=== PATIENT | female | born 1985 | race Caucasian/White ===

== ENCOUNTER → 2018-04-09 | Outpatient (CLI) | payer OTHER ==
[~2018-04-09] MED LIST: BCPILLS PO; SERT50TA PO; melatonin PO
== END | disposition home or self-care (01) ==
LOC: C.LAB1850 10:47
PROVIDERS: ATTEND Obstetrics & Gynecology
DX: Z34.82 Encounter for supervision of other normal pregnancy, second trimester (principal)

== ENCOUNTER 2018-09-06 01:12 | Inpatient (IN) ==
--- NOTE | 2018-09-06 02:26 | History & Physical Report ---
Date of Service September 06, 2018 Assessment & Plan (1) Previous delivery affecting : desires repeat. r/b/se of surgery reviewed with the patient including anesthesia, bleeding, transfusion, infection, poor wound healing, need for further surgery, injury to the baby. Discussed risks of any surgery including heart attack, blood clot, stroke, . Plan to proceed with delivery by c/s. (2) with 38 completed weeks gestation: fetus category one (3) SROM (spontaneous rupture of membranes): confirmed on sse. History of Present Illness Chief Complaint: leaking fluid Primary Care Provider: Bryan Melara Patient is a 33yowf who presents at 38 1/7 weeks c/o multiple gushes of fluid at about 12:30, has noted some cramping since. no vb. Was last checked in the office last week and was 2cm. complicated by ama and hx of previous c/s. She desires a repeat and was scheduled for 09/12. hx of anxiety on zoloft A+/ab-/ri/rprnrhiv-/hepb-/gc/ct-/ 16 week gtt nl/ panorama low risk female/afp neg/ 28 week gtt 148/ nl 2 hr gtt/gbs neg Allergies Allergy/AdvReac Type Severity Reaction Status Date / Time No Known Allergies Allergy Verified 09/06/18 01:49 Home Medications Home Medications Medication Instructions Recorded Confirmed Type ferrous sulfate [iron] 325 mg PO Q2D 07/21/18 09/06/18 History vit-iron fum-folic ac 1 tab PO QPM 07/21/18 09/06/18 History [ Vitamin] sertraline [Zoloft] 150 mg PO QPM 07/21/18 09/06/18 History polyethylene glycol 3350 [Miralax] 17 g PO Q2D 09/04/18 09/06/18 History sodium phosphates [Fleet Enema] 197 ml PA Q2D 09/04/18 09/06/18 History budesonide 0.5 mg INHALATION DAILY 09/06/18 09/06/18 History Patient History Family History Grandmother (Maternal) Family history of diabetes mellitus Grandfather (Paternal) Family hx of colon cancer Social History marital status: Current Living Situation: Spouse, Parent and Family Current Living Situation Comment: , son, parents Other Information That Helps Us Care for You: No Feels Safe at Home: Yes Safety Concerns: Feels Safe At This Time Smoking Status: Former smoker Do You Dip or Chew Tobacco: No Smoking End Date: 2010 Tobacco Cessation Education Requested by Patient: No Hx Alcohol Use: No Hx Substance Use: No Beliefs That Will Affect Care: None Preferred Language: Bur[place]ian Communication Ability: Effective Continuous Crusher Operator Required: No OB History g1--05/17, 8 week sab g2--04/17, c/s for ftp, 8#6oz g3--05/19, sab 7 weeks g4--11/17, 4 week sab [employer] History hx of abnl pap with leep, regular menstral cycles Review of Systems All systems reviewed & are unremarkable except as noted in HPI & below Physical Exam 2 Vital Signs (Past 24 Hours): Last Vital Signs Temp 36.4 C L 09/06/18 01:33 Pulse 92 H 09/06/18 01:31 Resp 18 09/06/18 01:31 BP 131/77 09/06/18 01:31 Constitutional: WD/WN, vitals as above Respiratory: normal respiratory effort, lungs clear to auscultation Cardiovascular: RRR, no murmur, no edema Gastrointestinal (Abdomen): soft, gravid, nt Genitourinary: cx--/-2 sse--+small pool, +nitrazine, +pool toco--katelyn efm--150s with mod variability, accels to 180s, no decels
[2018-09-06] MEDS ORDERED: CEFAZOLIN 2,000 MG in SYRINGE 0 ML IV STA (02:27)
[2018-09-06] MEDS ORDERED: LACTATED RINGER'S 1,000 ML IV SCH ×3 (02:30→05:40)
[2018-09-06] MEDS ORDERED: CITRIC ACID/SODIUM CITRATE 15 ML UDC ONE (02:34)
[2018-09-06 02:39] LABS: Basophils # (auto) 0.01 K/uL (0-0.2); Basophils % (auto) 0.1 %; Eosinophils # (auto) 0.04 K/uL (0-0.5); Eosinophils % (auto) 0.5 %; Hematocrit (blood only) 31.2 % (37-47); Hemoglobin 10.4 g/dL (12.0-16.0); Immature Granulocytes # (auto) 0.07 K/uL (0.00-0.02); Immature Granulocytes % (auto) 0.9 %; Lymphocytes % (auto) 23.5 %; Mean Corpuscular Volume 90.7 fL (80-100); Mean Platelet Volume 9.1 fL (7.4-10.4); Monocytes # (auto) 0.79 K/uL (0.11-0.59); Monocytes % (auto) 9.8 %; Neutrophils # (auto) 5.27 K/uL (1.4-6.5); Neutrophils % (auto) 65.2 %; Platelet Count 163 K/uL (130-400); RDW Coefficient of Variation 14.5 % (11.5-14.5); RDW Standard Deviation 48.1 fL (36.4-46.3); Red Blood Count 3.44 M/uL (4.2-5.4); White Blood Count 8.08 K/uL (4.8-10.8)
[2018-09-06 02:44] LABS: Mean Corpuscular Hgb Conc 33.3 g/dL (32-36)
--- NOTE | 2018-09-06 02:48 | Anesthesiology Consultation ---
Date of Service September 06, 2018 Patient now in labor. She had previous C section due to failure to progress. Assessment & Plan (1) Encounter for pre-operative examination: Chart Review Chart Review: Acceptable Risk for Surgery and Patient NOT seen in Pre Admission Testing Consults Requested none ASA ASA2E Proposed Anesthesia Anesthesia Type: Spinal Risk / Benefits Reviewed With: PT / POA / Parent / Guardian, Accepts Plan and Informed Consent Obtained NPO Date Last Intake of Fluids: 09/05/18 Time Last Intake of Fluids: 23:00 Date Last Intake of Solids: 09/05/18 Time Last Intake of Solids: 17:30 History Surgery Operation Date: 09/06/18 03:00 Proposed Procedures p Section in LD - Cora Griggs MD, FACOG Height/Weight Height: 5 ft 9 in Weight: 92.079 kg Allergies Allergy/AdvReac Type Severity Reaction Status Date / Time No Known Allergies Allergy Verified 09/06/18 01:49 Medications Home Medications Medication Instructions Recorded Confirmed Last Taken ferrous sulfate [iron] 325 mg PO Q2D 07/21/18 09/06/18 09/04/18 08:00 vit-iron fum-folic ac 1 tab PO QPM 07/21/18 09/06/18 09/05/18 08:00 [ Vitamin] sertraline [Zoloft] 150 mg PO QPM 07/21/18 09/06/18 09/05/18 08:00 polyethylene glycol 3350 [Miralax] 17 g PO Q2D 09/04/18 09/06/18 09/05/18 08:00 sodium phosphates [Fleet Enema] 197 ml NC Q2D 09/04/18 09/06/18 09/05/18 08:00 budesonide 0.5 mg INHALATION DAILY 09/06/18 09/06/18 09/05/18 08:00 Active Medications Generic Name Dose Route Start Last Admin Trade Name Freq PRN Reason Stop Dose Admin Lactated Ringer's 1,000 mls @ 999 mls/hr 09/06/18 02:30 09/06/18 02:24 Lr IV 09/06/18 03:30 999 mls/hr .Q1H1M MARY Administration Past Medical History Medical History Chronic sinusitis Anemia Anxiety Cardiac murmur Chronic back pain NECK FULL ROM NECK GERD (gastroesophageal reflux disease) Hiatal hernia History of abnormal cervical Pap smear Human papilloma virus Spontaneous Tremor ESSENTIAL TREMOR-F/U NEUROLOGIST LOREN HODGSON Past Family History Family History Grandmother (Maternal) Family history of diabetes mellitus Grandfather (Paternal) Family hx of colon cancer Past Surgical History Surgical History H/O LEEP History of adenoidectomy History of section (~04/25/16) History of deviated nasal septum SEPTOPLASTY History of dilatation and curettage X 2 History of placement of ear tubes Hx of tonsillectomy Past Anesthesia History No Hx of Anesthesia Complications and No Family Hx of Anesthesia Complications History of PONV No Motion Sickness Screening History of Motion Sickness: No Social History Smoking Status: Former smoker Do You Dip or Chew Tobacco: No Smoking End Date: 2010 Hx Alcohol Use: No Hx Substance Use: No substance use type: does not use Exercise / Class Metabolic Activity II 4-5 Yardwork/Stairs/Walk up hill Review of Systems no chest pain or sob, patient gets light headed when she lies flat on her back with Physical Exam Vital Signs Last Vital Signs Temp 36.4 C L 09/06/18 01:33 Pulse 86 09/06/18 02:54 Resp 18 09/06/18 01:31 BP 131/77 09/06/18 01:31 Pulse Ox 97 09/06/18 02:54 ENMT Mouth: no dentition abnormality Thyromental Distance: > or= 3.5 Finger Breadths Mallampati Class: II Neck normal visual inspection Respiratory normal respiratory effort Cardiovascular Rate/Rhythm: regular rate Musculoskeletal Spine: no pain with cervical ROM Neurologic moves all extremities Psychiatric Orientation: alert and oriented x 3 Testing Laboratory Results 09/06/18 02:30
[2018-09-06] MEDS ORDERED: MoRPHine SULFATE 2 MG/ML CARP ONE (03:03)
[2018-09-06] MEDS ORDERED: fentaNYL citrate 100 MCG/2 ML VIAL ONE (03:03)
[2018-09-06] MEDS ORDERED: MoRPHine SULFATE PF 1 MG/ML 10 ML AMP/VIAL ONE ×2 (03:06→03:08)
[2018-09-06] MEDS ORDERED: OXYTOCIN 10 UNITS/ML VIAL ONE ×2 (03:10→04:10)
[2018-09-06] MEDS ORDERED: PHENYLEPHRINE 100MCG/ML 5ML SYR ONE (03:23)
[2018-09-06] MEDS ORDERED: NALOXONE HCL 0.4 MG/1 ML VIAL/CARP IV PRN (03:33)
[2018-09-06] MEDS ORDERED: HYDROmorphone INJ 0.5 MG/0.5 ML SYR IV PRN (03:33)
[2018-09-06] MEDS ORDERED: NALOXONE HCL 0.08 MG in SYRINGE 1.8 ML IV PRN (03:33)
[2018-09-06] MEDS ORDERED: ONDANSETRON INJ 2 MG/ML 2 ML VIAL IV PRN ×2 (03:33→21:33)
[2018-09-06] MEDS ORDERED: DiphenhydrAMINE HCL 50 MG/ML VIAL IV PRN ×2 (03:33→21:33)
[2018-09-06] MEDS ORDERED: MEPERIDINE HCL 25 MG/ML CARP IV PRN (03:33)
[2018-09-06] MEDS ORDERED: MoRPHine SULFATE PF 1 MG/ML 10 ML AMP/VIAL INT SPINAL ONE (03:33)
[2018-09-06] MEDS ORDERED: ePHEDrine sulfate 50 MG/ML AMP IV PRN (03:33)
[2018-09-06] MEDS ORDERED: LACTATED RINGER'S 500 ML IV PRN (03:33)
[2018-09-06] MEDS ORDERED: NALOXONE HCL 1 MG in SODIUM CHLORIDE 0.9% 1000ML 1,000 ML IV PRN (03:33)
[2018-09-06] MEDS ORDERED: NALBUPHINE HCL INJ 10 MG/ML AMP IV PRN (03:33)
[2018-09-06] MEDS ORDERED: DC INTRASPINAL MORPHINE SCH (03:45)
[2018-09-06] MEDS ORDERED: NO NARCOTICS OR SEDATIVES SCH (03:45)
[2018-09-06] MEDS ORDERED: SODIUM CHLORIDE 0.9% 1000ML 1,000 ML IV SCH (03:45)
[2018-09-06] MEDS ORDERED: CARBOPROST TROMETHAMINE 250 MCG/ML AMPUL ONE (03:50)
--- NOTE | 2018-09-06 04:14 | Post Operative Brief Note ---
Immediate Post Op Note v1 Date of Surgery September 06, 2018 Pre & Post Diagnosis pre-op diagnosis at 38 weeks srom previous postop diagnosis same Operation Date: 09/06/18 03:00 <No data on this case meets the specified criteria> Procedure Operation Date: 09/06/18 03:00 <No data on this case meets the specified criteria> repeat lower transverse Surgeon Cora Griggs MD, FACOG Custodian La Dahl RN Estimated Blood Loss 700 Findings Consistent with Post-Op Diagnosis
--- NOTE | 2018-09-06 05:36 | Operative Report ---
DATE OF OPERATION: 09/06/2018 PREOPERATIVE DIAGNOSES: 1. Intrauterine at 38+ weeks. 2. Spontaneous rupture of membranes. 3. History of previous section, desires repeat. POSTOPERATIVE DIAGNOSES: 1. Intrauterine at 38+ weeks. 2. Spontaneous rupture of membranes. 3. History of previous section, desires repeat. PROCEDURE: Repeat lower transverse section. SURGEON: Cora Griggs MD TOOLING INSPECTOR: Re Dahl RN. ANESTHESIA: Spinal. ESTIMATED BLOOD LOSS: 700 mL. FLUIDS: 2500 mL. URINE OUTPUT: 325 mL of clear yellow urine drained from the bladder at the end of the procedure. INDICATIONS: The patient is a 5, para 1-0-3-1 with a history of a previous section for failure to progress and CPD. She desires repeat section and presented with rupture of membranes confirmed on sterile speculum exam. FINDINGS: Normal uterus, tubes, and ovaries were noted bilaterally. Viable female infant in cephalic presentation, no nuchal cord. Apgars 8 and 8. There was a small hematoma in the left broad ligament that was stable at the end of the procedure. COMPLICATIONS: None. DRAINS: Yanez. DISPOSITION: To recovery room in stable condition. DESCRIPTION OF PROCEDURE: The patient was taken to the operating room where she was identified verbally and by bracelet. She was seated on the operating table where spinal anesthetic was placed. She was then placed in dorsal supine position with a leftward tilt. A Yanez catheter was placed sterilely. The patient was prepped and draped in normal sterile fashion. Timeout was held, identifying correct patient, procedure, positioning, and preoperative antibiotic. There were no concerns about the case. A Pfannenstiel skin incision was made with the knife and taken down to the underlying layer of fascia with the knife. Bleeding was attended to with Bovie electrocautery. The fascia was incised in the midline with the knife and taken out laterally with scissors. The superior edge of the fascial incision was grasped, elevated and the underlying layer of rectus muscle was taken off bluntly and with scissors. In a similar fashion, the inferior edge of the fascial incision was grasped, elevated and the underlying layer of rectus muscle was taken off bluntly and with scissors. The muscles were sharply in the midline by use of the knife. The peritoneum was grasped and entered with a knife. The seaming machine operator's finger was placed into the peritoneal cavity and no adhesions were noted, so the peritoneum was taken superiorly and inferiorly sharply with scissors with good visualization and the incision was stretched. The bladder blade was placed. The vesicouterine peritoneum was identified, grasped and entered with Metzenbaum scissors and taken out laterally with scissors. The bladder flap was created digitally. The hysterotomy incision was scored with a knife. It was entered with a snap. The incision was stretched with the seaming machine operator's fingers. The seaming machine operator's hand was placed into the uterine incision and the head was lifted gently into the incision. It was a tight fit through the incision, so a vacuum was called for. Vacuum was placed x1 and it popped off and then the seaming machine operator was able to deliver the head atraumatically through the incision using fundal pressure. There was immediate cry. The nose and mouth were bulb suctioned. The cord was clamped and cut and the was taken off to the waiting shift manager for drying and attention. Cord blood and gases were obtained. Placenta was manually extracted. The uterus was exteriorized and cleared of all clot and debris with moistened laparotomy sponges. The hysterotomy incision was repaired in 2 layers, the first in a running locked layer, the second in an imbricating layer. A hematoma with some bleeding was noted in the left broad ligament which was attended to with several interrupted stitches of 0 Vicryl until hemostasis was assured. Careful observation of this showed that there was not increasing in size of the hematoma. This was observed carefully for several minutes both with the uterus outside of the abdomen and then again with the uterus inside of the abdomen. When the uterus was reanteriorized, there was an area of oozing on the incision towards the patient's right which was attended to with a [id number] suture. Hemostasis across the incision was noted to be excellent and the hematoma in the left broad ligament was stable. The muscles were reapproximated with several interrupted sutures of 0 Vicryl in the midline. The fascia was reapproximated with 0 Vicryl starting at the corners and meeting in the middle. The subcuticular tissue was copiously irrigated with warm normal saline. Bleeding was attended to with Bovie electrocautery. The skin was then closed with a subcuticular stitch of 4-0 Vicryl. All sponge, lap and needle counts were correct x2. The patient tolerated the procedure well and was taken to the recovery room in stable condition. I attest to the content of the Intraoperative Record and any orders documented therein. Any exception s are noted below.
[2018-09-06] MEDS ORDERED: BENZOCAINE 20% AER SPR 82.5 GM CAN EXT PRN (05:40)
[2018-09-06] MEDS ORDERED: MAGNESIUM HYDROXIDE SUSP 30 ML UDC PO PRN (05:40)
[2018-09-06] MEDS ORDERED: OXYTOCIN 20 UNITS in LACTATED RINGER'S 1,000 ML IV SCH (05:40)
[2018-09-06] MEDS ORDERED: HYDROCORTISONE ACETATE 25 MG SUPP PR PRN (05:40)
[2018-09-06] MEDS ORDERED: SENNA 8.6 MG TAB PO PRN (05:40)
[2018-09-06] MEDS ORDERED: SUPERCREAM 0.870% 15 GM JAR EXT PRN (05:40)
[2018-09-06] MEDS ORDERED: CITRIC ACID/SODIUM CITRATE 15 ML UDC PO SCH (06:00)
[2018-09-06] MEDS: SIMETHICONE 80 MG CHEW PO SCH ×4 (08:10→20:11)
[2018-09-06] MEDS: FERROUS SULFATE 325 MG TAB PO SCH (08:10)
[2018-09-06] MEDS: PRENATAL VITAMIN 1 TAB PO SCH (08:10)
[2018-09-06] MEDS: DOCUSATE SODIUM 100 MG CAP PO SCH ×2 (08:12→20:08)
[2018-09-06] MEDS: KETOROLAC 30 MG/ML VIAL IV PRN ×3 (08:13→20:08)
--- NOTE | 2018-09-06 08:17 | Anesthesiology Progress Note ---
Date of Service September 06, 2018 Anesthesia Post Procedure Vital Signs Vital Signs: Temp Pulse Resp BP Pulse Ox 09/06/18 07:07 80 97 09/06/18 07:02 74 95 09/06/18 06:57 82 96 09/06/18 06:52 77 96 09/06/18 06:47 79 97 09/06/18 06:42 77 96 09/06/18 06:37 78 97 09/06/18 06:32 86 97 09/06/18 06:28 36.7 C 77 18 118/60 09/06/18 06:27 79 99 09/06/18 06:22 88 96 09/06/18 06:21 82 91 09/06/18 06:17 83 97 09/06/18 06:16 93 H 90 09/06/18 06:12 84 97 09/06/18 06:08 85 90 09/06/18 06:07 85 91 09/06/18 06:02 70 96 09/06/18 05:57 82 98 09/06/18 05:56 79 18 122/64 09/06/18 05:52 78 98 09/06/18 05:47 85 97 09/06/18 05:42 81 98 09/06/18 05:38 88 83 L 09/06/18 05:37 89 95 09/06/18 05:32 82 99 09/06/18 05:27 78 97 09/06/18 05:23 81 18 113/62 09/06/18 05:22 82 94 09/06/18 05:17 80 96 09/06/18 05:13 111 H 20 121/75 09/06/18 05:12 83 100 09/06/18 05:07 96 H 97 09/06/18 05:03 90 18 99/54 L 09/06/18 05:02 92 H 99 09/06/18 04:57 83 92 09/06/18 04:53 82 16 100/55 L 09/06/18 04:52 82 97 09/06/18 04:51 86 91 09/06/18 04:47 82 98 09/06/18 04:42 75 16 102/59 L 96 09/06/18 04:37 73 104/56 L 96 09/06/18 04:32 65 98 09/06/18 04:31 72 16 86/52 L 09/06/18 04:27 69 99 09/06/18 04:25 76 94 09/06/18 04:22 77 96 09/06/18 04:21 36.4 C L 73 18 103/52 L 09/06/18 03:04 114 H 97 09/06/18 02:59 81 98 09/06/18 02:54 86 97 09/06/18 02:49 91 H 97 09/06/18 02:44 87 96 09/06/18 01:33 36.4 C L 09/06/18 01:31 92 H 18 131/77 Notes Mental Status: alert / awake / arousable Patient Amnestic to Procedure: Yes Nausea / Vomiting: adequately controlled Pain: adequately controlled Airway Patency, RR, SpO2: stable & adequate BP & HR: stable & adequate Hydration State: stable & adequate Neuraxial Anesthesia: was administered and sensory block is resolving Anesthetic Complications: no major complications apparent and Pt Satisfied with anesthetic care
[2018-09-06] MEDS: SERTRALINE HCL 100 MG TABLET PO SCH (20:09)
[2018-09-06] MEDS ORDERED: KETOROLAC 30 MG/ML VIAL IV PRN (21:33)
[2018-09-06] MEDS ORDERED: PROMETHAZINE HCL 25 MG in SODIUM CHLORIDE 0.9% 50 ML IV PRN (21:33)
[2018-09-06] MEDS ORDERED: MEPERIDINE HCL 50 MG/ML CARP IV PRN (21:33)
[2018-09-07] MEDS: OXYCODONE/ACETAMINOPHEN 5mg/325mg TAB PO PRN ×7 (00:48→22:02)
[2018-09-07] MEDS: IBUPROFEN 600 MG TAB PO PRN ×5 (04:42→22:02)
[2018-09-07 06:41] LABS: Basophils # (auto) 0.01 K/uL (0-0.2); Basophils % (auto) 0.1 %; Eosinophils # (auto) 0.02 K/uL (0-0.5); Eosinophils % (auto) 0.2 %; Hematocrit (blood only) 25.4 % (37-47); Hemoglobin 8.2 g/dL (12.0-16.0); Immature Granulocytes # (auto) 0.06 K/uL (0.00-0.02); Immature Granulocytes % (auto) 0.6 %; Lymphocytes # (auto) 1.33 K/uL (1.2-3.4); Lymphocytes % (auto) 13.6 %; Mean Corpuscular Hgb Conc 32.3 g/dL (32-36); Monocytes # (auto) 0.87 K/uL (0.11-0.59); Monocytes % (auto) 8.9 %; Neutrophils # (auto) 7.49 K/uL (1.4-6.5); Neutrophils % (auto) 76.6 %; Platelet Count 149 K/uL (130-400); RDW Coefficient of Variation 14.4 % (11.5-14.5); Red Blood Count 2.79 M/uL (4.2-5.4); White Blood Count 9.78 K/uL (4.8-10.8)
--- NOTE | 2018-09-07 07:35 | Obstetrical Progress Note ---
Date of Service September 07, 2018 Assessment & Plan (1) Previous delivery affecting : Patient is POD#1 from repeat . Issues this morning are with shoulder tip pain c/w gas distention of abdomen. No N/V but has only really tried to eat crackers so far. 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 She was on Linzess pre- and has been off it during and using fleet's at home. Will try bisacodyl suppository in hopes of avoiding fleet's while using significant NSAID doses, but may need fleet's given her usual habits at home so it was ordered. Patient is well hydrated and now using more narcotic and less NSAID as she did not find the NSAID sufficient for pain control (she was intially trying to avoid narcotics in hopes of avoiding worse constipation but has now realized she wants/needs the narcotics). Subjective Ambulation: ambulating normally Voiding: no voiding problems Passing Gas:: Yes Diet Tolerance:: regular diet Lochia:: Small Physical Exam Vital Signs (Past 24 Hours) Last Vital Signs Temp 36.6 C 09/07/18 00:35 Pulse 85 09/07/18 00:35 Resp 18 09/07/18 00:35 BP 116/66 09/07/18 00:35 Pulse Ox 96 09/06/18 21:30 Gen: NAD, dressed in street clothes and just returned from ambulating. Lungs: Nonlabored breathing Abd: Soft, NT, mild distention, FF @ u, Dressing removed and incision c/d/i. Ext: Mild equal pedal edema, neg Homans. Results & Data Laboratory Results Laboratory Results - last 24 hr 09/07/18 06:18 WBC 9.78 RBC 2.79 L Hgb 8.2 L Hct 25.4 L MCV 91.0 MCH 29.4 MCHC 32.3 RDW Std Deviation 48.0 H RDW Coeff of Vipul 14.4 Plt Count 149 MPV 9.0 Immature Gran % (Auto) 0.6 Neut % (Auto) 76.6 Lymph % (Auto) 13.6 Richardson % (Auto) 8.9 Eos % (Auto) 0.2 Baso % (Auto) 0.1 Immature Gran # (Auto) 0.06 H Neut # (Auto) 7.49 H Lymph # (Auto) 1.33 Richardson # (Auto) 0.87 H Eos # (Auto) 0.02 Baso # (Auto) 0.01
--- NOTE | 2018-09-07 07:36 | Anesthesiology Progress Note ---
Date of Service September 07, 2018 Anesthesia Post Procedure Vital Signs Vital Signs: Temp Pulse Resp BP Pulse Ox 09/07/18 00:35 36.6 C 85 18 116/66 09/06/18 21:30 18 96 09/06/18 20:30 18 95 09/06/18 20:10 36.9 C 98 H 18 108/68 95 09/06/18 19:30 18 96 09/06/18 19:12 20 96 09/06/18 18:30 20 96 09/06/18 17:30 20 96 09/06/18 16:38 16 96 09/06/18 15:35 20 95 09/06/18 15:00 36.8 C 92 H 18 108/65 97 09/06/18 14:31 20 95 09/06/18 13:43 20 96 09/06/18 12:45 20 95 09/06/18 12:25 36.6 C 75 20 110/61 96 09/06/18 11:51 20 96 09/06/18 10:45 20 96 09/06/18 09:30 20 97 09/06/18 08:30 36.6 C 78 20 111/66 96 Notes Mental Status: alert / awake / arousable Patient Amnestic to Procedure: Yes Nausea / Vomiting: adequately controlled Pain: adequately controlled Airway Patency, RR, SpO2: stable & adequate BP & HR: stable & adequate Hydration State: stable & adequate Anesthetic Complications: no major complications apparent and Pt Satisfied with anesthetic care Notes: Patient complains of some itching likely from the Percocet.
[2018-09-07] MEDS ORDERED: BISACODYL 10 MG SUPP PR ONE (08:02)
[2018-09-07] MEDS: DOCUSATE SODIUM 100 MG CAP PO SCH ×2 (08:36→22:11)
[2018-09-07] MEDS: PRENATAL VITAMIN 1 TAB PO SCH (08:37)
[2018-09-07] MEDS: FERROUS SULFATE 325 MG TAB PO SCH (08:37)
[2018-09-07] MEDS: SIMETHICONE 80 MG CHEW PO SCH ×4 (08:37→21:58)
[2018-09-07] MEDS ORDERED: DIPHTHERIA/TETANUS/PERTUSSIS 0.5 ML SYR/VIAL IM ONE (09:00)
[2018-09-07] MEDS: SOD PHOSPHATE/SOD BIPHOSPHATE ENEMA 132 ML BTL PR PRN (09:52)
[2018-09-07] MEDS ORDERED: POLYETHYLENE (MIRALAX) 17 GM PACK PO PRN (17:09)
[2018-09-07] MEDS ORDERED: BISACODYL 5 MG TABEC PO SCH (20:00)
[2018-09-07] MEDS: SERTRALINE HCL 100 MG TABLET PO SCH (21:59)
[2018-09-08] MEDS: OXYCODONE/ACETAMINOPHEN 5mg/325mg TAB PO PRN ×6 (03:49→22:05)
[2018-09-08] MEDS ORDERED: BISACODYL 10 MG SUPP PR PRN (04:23)
[2018-09-08] MEDS: IBUPROFEN 600 MG TAB PO PRN ×4 (04:44→20:17)
[2018-09-08 06:33] LABS: Hematocrit (blood only) 23.3 % (37-47); Hemoglobin 7.7 g/dL (12.0-16.0)
[2018-09-08] MEDS ORDERED: SOD PHOSPHATE/SOD BIPHOSPHATE ENEMA 132 ML BTL PR PRN (07:31)
--- NOTE | 2018-09-08 07:54 | Obstetrical Progress Note ---
Date of Service <Get Hernandez DO - Last Filed: 09/08/18 07:54> September 08, 2018 Assessment & Plan <Get Hernandez DO - Last Filed: 09/08/18 07:54> (1) delivery delivered: 33 y/o, POD #2, , C/S @ 38.1 weeks, A+, GBS- POD #2 continue routine post- care, encourage ambulation (2) Constipation: on Linzness at home, not taking here, also uses home enemas Fleets Enemas ordered here PRN daily Day #:: 2 <Maribel Hu MD - Last Filed: 09/08/18 07:59> (1) delivery delivered: Subjective <Get Hernandez DO - Last Filed: 09/08/18 07:54> Ambulation: ambulating normally Voiding: no voiding problems Passing Gas:: Yes Diet Tolerance:: regular diet Feeding Type:: bottle feeding Myrtle states she is doing well this morning, no fevers, chills, chest pain, shortness of breath, headache. Physical Exam <Get Hernandez DO - Last Filed: 09/08/18 07:54> Vital Signs (Past 24 Hours) Last Vital Signs Temp 36.5 C 09/07/18 20:00 Pulse 74 09/07/18 20:00 Resp 18 09/07/18 20:00 BP 119/74 09/07/18 20:00 Pulse Ox 97 09/07/18 20:00 Constitutional WD/WN, vitals as above Respiratory normal respiratory effort, lungs clear to auscultation Cardiovascular Rate/Rhythm: regular rate and regular rhythm Heart Sounds: no murmur Gastrointestinal (Abdomen) Percussion/Palpation: abdomen nontender incision site is clean, dry, intact with no signs of infection Skin no rashes, warm and dry Neurologic moves all extremities and awake Psychiatric Orientation: alert Affect: euthymic affect Results & Data <Get Hernandez DO - Last Filed: 09/08/18 07:54> Laboratory Results Laboratory Results - last 24 hr 09/08/18 06:17 Hgb 7.7 L Hct 23.3 L Medications Administered Docusate Sodium (Colace) 100 mg PO BID MARY Stop: 10/06/18 08:59 Last Admin: 09/07/18 22:11 Dose: 100 mg Admin: 09/07/18 08:36 Dose: 100 mg Admin: 09/06/18 20:08 Dose: 100 mg Admin: 09/06/18 08:12 Dose: 100 mg Ferrous Sulfate (Feosol) 325 mg PO QAM [facility] Stop: 10/06/18 08:59 Last Admin: 09/07/18 08:37 Dose: 325 mg Admin: 09/06/18 08:10 Dose: 325 mg Lactated Ringer's (Lr) 1,000 mls @ 125 mls/hr IV .Q8H [facility] Stop: 10/06/18 05:39 Last Infusion: 09/06/18 15:30 Dose: 125 mls/hr Admin: 09/06/18 15:03 Dose: 125 mls/hr Oxytocin 20 units/ Lactated (Ringer's) 1,002 mls @ 125 mls/hr IV .Q8H1M [facility] Stop: 10/06/18 05:39 Last Admin: 09/06/18 06:48 Dose: 125 mls/hr Ibuprofen (Motrin) 600 mg PO Q4H PRN PRN Reason: Pain Stop: 10/06/18 05:39 Last Admin: 09/08/18 04:44 Dose: 600 mg Admin: 09/07/18 22:02 Dose: 600 mg Admin: 09/07/18 17:43 Dose: 600 mg Admin: 09/07/18 12:46 Dose: 600 mg Admin: 09/07/18 08:36 Dose: 600 mg Admin: 09/07/18 04:42 Dose: 600 mg Oxycodone/Acetaminophen (Percocet 5mg/325mg) 1 - 2 tab PO Q4H PRN PRN Reason: Pain Stop: 09/20/18 21:32 Last Admin: 09/08/18 03:49 Dose: 1 tab Admin: 09/07/18 22:02 Dose: 1 tab Admin: 09/07/18 17:42 Dose: 1 tab Admin: 09/07/18 13:45 Dose: 1 tab Admin: 09/07/18 12:45 Dose: 1 tab Admin: 09/07/18 08:35 Dose: 1 tab Admin: 09/07/18 04:43 Dose: 2 tab Admin: 09/07/18 00:48 Dose: 1 tab Prenat Multivit/Bourbon/Iron/Folic Ac ( Vitamin) 1 tab PO QAM [facility] Stop: 10/06/18 08:59 Last Admin: 09/07/18 08:37 Dose: 1 tab Admin: 09/06/18 08:10 Dose: 1 tab Sertraline HCl (Zoloft) 150 mg PO QPM [facility] Stop: 10/06/18 20:59 Last Admin: 09/07/18 21:59 Dose: 150 mg Admin: 09/06/18 20:09 Dose: 150 mg Simethicone (Mylicon) 80 mg PO QID [facility] Stop: 10/06/18 08:59 Last Admin: 09/07/18 21:58 Dose: 80 mg Admin: 09/07/18 17:44 Dose: 80 mg Admin: 09/07/18 12:45 Dose: 80 mg Admin: 09/07/18 08:37 Dose: 80 mg Admin: 09/06/18 20:11 Dose: 80 mg Admin: 09/06/18 17:32 Dose: 80 mg Admin: 09/06/18 12:35 Dose: 80 mg Admin: 09/06/18 08:10 Dose: 80 mg Sodium Biphosphate/Sodium Phosphate (Fleet Enema) 132 ml [place] DAILY PRN PRN Reason: Constipation Stop: 10/07/18 07:30 Last Admin: 09/07/18 09:52 Dose: 132 ml <Maribel Hu MD - Last Filed: 09/08/18 07:59> Co-Signing Physician Notes I have examined the patient and agree with the resident note above. Linzess not taken by patient during at all and does not want to take while , so requesting daily fleet enema as that's what she does at home.
[2018-09-08] MEDS: DOCUSATE SODIUM 100 MG CAP PO SCH ×2 (09:00→21:15)
[2018-09-08] MEDS: SIMETHICONE 80 MG CHEW PO SCH ×4 (09:01→21:15)
[2018-09-08] MEDS: FERROUS SULFATE 325 MG TAB PO SCH (09:01)
[2018-09-08] MEDS: PRENATAL VITAMIN 1 TAB PO SCH (09:01)
[2018-09-08] MEDS: SERTRALINE HCL 100 MG TABLET PO SCH (21:15)
[2018-09-08] MEDS: SOD PHOSPHATE/SOD BIPHOSPHATE ENEMA 132 ML BTL PR PRN (21:58)
[2018-09-09] MEDS: IBUPROFEN 600 MG TAB PO PRN ×3 (02:38→10:57)
[2018-09-09] MEDS: OXYCODONE/ACETAMINOPHEN 5mg/325mg TAB PO PRN ×3 (02:38→10:57)
--- NOTE | 2018-09-09 07:44 | Obstetrical Progress Note ---
Date of Service <Get Hernandez - Last Filed: 09/09/18 07:44> September 09, 2018 Assessment & Plan <Get HernandezDO - Last Filed: 09/09/18 07:44> (1) delivery delivered: 33 y/o, POD #2, , C/S @ 38.1 weeks, A+, GBS- POD #3 continue routine post- care, encourage ambulation until discharge home today discharge instructions reviewed with patient at bedside (2) Constipation: on Linzness at home, not taking here, also uses home enemas Fleets Enemas ordered here PRN daily Subjective <Get HernandezDO - Last Filed: 09/09/18 07:44> Ambulation: ambulating normally Voiding: no voiding problems Passing Gas:: Yes Diet Tolerance:: regular diet Feeding Type:: bottle feeding Current Pain Level(1-10): 0 Myrtle states she is doing well today and is ready for discharge home. No fever , chills, shortness of breath, chest pain, nausea, vomiting. Physical Exam <Get DO David - Last Filed: 09/09/18 07:44> Vital Signs (Past 24 Hours) Last Vital Signs Temp 36.6 C 09/09/18 00:05 Pulse 84 09/09/18 00:05 Resp 18 09/09/18 00:05 BP 119/71 09/09/18 00:05 Pulse Ox 99 09/09/18 00:05 Constitutional WD/WN, vitals as above Respiratory normal respiratory effort, lungs clear to auscultation Cardiovascular Rate/Rhythm: regular rate and regular rhythm Heart Sounds: no murmur Gastrointestinal (Abdomen) Percussion/Palpation: abdomen nontender surgical incision is clean, dry, intact Skin no rashes, warm and dry Neurologic moves all extremities and awake Psychiatric Orientation: alert Affect: euthymic affect Results & Data <Get DO Mandeep Hernandez Last Filed: 09/09/18 07:44> Medications Administered Docusate Sodium (Colace) 100 mg PO BID MARY Stop: 10/06/18 08:59 Last Admin: 09/08/18 21:15 Dose: 100 mg Admin: 09/08/18 09:00 Dose: 100 mg Admin: 09/07/18 22:11 Dose: 100 mg Admin: 09/07/18 08:36 Dose: 100 mg Admin: 09/06/18 20:08 Dose: 100 mg Admin: 09/06/18 08:12 Dose: 100 mg Ferrous Sulfate (Feosol) 325 mg PO QAM [facility] Stop: 10/06/18 08:59 Last Admin: 09/08/18 09:01 Dose: 325 mg Admin: 09/07/18 08:37 Dose: 325 mg Admin: 09/06/18 08:10 Dose: 325 mg Lactated Ringer's (Lr) 1,000 mls @ 125 mls/hr IV .Q8H MARY Stop: 10/06/18 05:39 Last Infusion: 09/06/18 15:30 Dose: 125 mls/hr Admin: 09/06/18 15:03 Dose: 125 mls/hr Oxytocin 20 units/ Lactated (Ringer's) 1,002 mls @ 125 mls/hr IV .Q8H1M [facility] Stop: 10/06/18 05:39 Last Admin: 09/06/18 06:48 Dose: 125 mls/hr Ibuprofen (Motrin) 600 mg PO Q4H PRN PRN Reason: Pain Stop: 10/06/18 05:39 Last Admin: 09/09/18 06:20 Dose: 600 mg Admin: 09/09/18 02:38 Dose: 600 mg Admin: 09/08/18 20:17 Dose: 600 mg Admin: 09/08/18 13:35 Dose: 600 mg Admin: 09/08/18 09:02 Dose: 600 mg Admin: 09/08/18 04:44 Dose: 600 mg Admin: 09/07/18 22:02 Dose: 600 mg Admin: 09/07/18 17:43 Dose: 600 mg Admin: 09/07/18 12:46 Dose: 600 mg Admin: 09/07/18 08:36 Dose: 600 mg Admin: 09/07/18 04:42 Dose: 600 mg Oxycodone/Acetaminophen (Percocet 5mg/325mg) 1 - 2 tab PO Q4H PRN PRN Reason: Pain Stop: 09/20/18 21:32 Last Admin: 09/09/18 06:21 Dose: 1 tab Admin: 09/09/18 02:38 Dose: 1 tab Admin: 09/08/18 22:05 Dose: 1 tab Admin: 09/08/18 20:17 Dose: 1 tab Admin: 09/08/18 14:42 Dose: 1 tab Admin: 09/08/18 13:35 Dose: 1 tab Admin: 09/08/18 09:01 Dose: 1 tab Admin: 09/08/18 03:49 Dose: 1 tab Admin: 09/07/18 22:02 Dose: 1 tab Admin: 09/07/18 17:42 Dose: 1 tab Admin: 09/07/18 13:45 Dose: 1 tab Admin: 09/07/18 12:45 Dose: 1 tab Admin: 09/07/18 08:35 Dose: 1 tab Admin: 09/07/18 04:43 Dose: 2 tab Admin: 09/07/18 00:48 Dose: 1 tab Polyethylene Glycol (Miralax Powder Packet) 17 gm PO DAILY PRN PRN Reason: Constipation Stop: 10/07/18 17:08 Last Admin: 09/08/18 12:18 Dose: 17 gm Prenat Multivit/[place]/Iron/Folic Ac ( Vitamin) 1 tab PO QAM [facility] Stop: 10/06/18 08:59 Last Admin: 09/08/18 09:01 Dose: 1 tab Admin: 09/07/18 08:37 Dose: 1 tab Admin: 09/06/18 08:10 Dose: 1 tab Sertraline HCl (Zoloft) 150 mg PO QPM [facility] Stop: 10/06/18 20:59 Last Admin: 09/08/18 21:15 Dose: 150 mg Admin: 09/07/18 21:59 Dose: 150 mg Admin: 09/06/18 20:09 Dose: 150 mg Simethicone (Mylicon) 80 mg PO QID [facility] Stop: 10/06/18 08:59 Last Admin: 09/08/18 21:15 Dose: 80 mg Admin: 09/08/18 18:53 Dose: 80 mg Admin: 09/08/18 12:19 Dose: 80 mg Admin: 09/08/18 09:01 Dose: 80 mg Admin: 09/07/18 21:58 Dose: 80 mg Admin: 09/07/18 17:44 Dose: 80 mg Admin: 09/07/18 12:45 Dose: 80 mg Admin: 09/07/18 08:37 Dose: 80 mg Admin: 09/06/18 20:11 Dose: 80 mg Admin: 09/06/18 17:32 Dose: 80 mg Admin: 09/06/18 12:35 Dose: 80 mg Admin: 09/06/18 08:10 Dose: 80 mg Sodium Biphosphate/Sodium Phosphate (Fleet Enema) 132 ml [place] DAILY PRN PRN Reason: Constipation Stop: 10/07/18 07:30 Last Admin: 09/08/18 21:58 Dose: 132 ml Admin: 09/07/18 09:52 Dose: 132 ml <Daniel Newsome MD, FACOG - Last Filed: 09/09/18 07:50> Co-Signing Physician Notes Resident Physician Supervision Note: I interviewed and examined the patient. Discussed with [David] and agree with findings and plan as documented in the note. Any exceptions or clarifications are listed here: [None] Documented By: Daniel Newsome MD, FACOG
[2018-09-09] MEDS: SIMETHICONE 80 MG CHEW PO SCH (08:40)
[2018-09-09] MEDS: FERROUS SULFATE 325 MG TAB PO SCH (08:40)
[2018-09-09] MEDS: PRENATAL VITAMIN 1 TAB PO SCH (08:40)
[2018-09-09] MEDS: DOCUSATE SODIUM 100 MG CAP PO SCH (08:40)
--- NOTE | 2018-09-10 09:48 | Discharge Summary ---
NOTICE TO RECEIVING REPUBLICAN/AGENCY This information is strictly Confidential and protected under [place] law. [place] law prohibits you from making any further disclosure of this information unless further disclosure is expressly permitted by the written consent of the person to whom it pertains or is authorized by law. A general authorization for the release of medical or other information is not sufficient for this purpose. Hospital accepts no responsibility if the information is made available to any other person, INCLUDING THE PATIENT. ADMISSION DIAGNOSES: 1. Intrauterine at 38+ weeks. 2. History of previous section, desires repeat. 3. Rupture of membranes. HISTORY: The patient is a 33-year-old white female 5, para 1-0-3-1, who presents at 38 and 1/7 weeks with complaints of multiple gushes of fluid at approximately 12:30 a.m. She has noted some cramping since. No vaginal bleeding. Was last checked in the office last week and 2 cm dilated. complicated by advanced maternal age and history of previous section. She desired a repeat section and was scheduled for 09/12/2018. There is a history of anxiety on Zoloft. For the rest of patient's detailed history and physical, please see her dictated history and physical. ASSESSMENT: This is a at 38+ weeks with rupture of membranes and history of previous section. She desires repeat section. HOSPITAL COURSE: The patient was admitted and she underwent a repeat lower transverse section without difficulty. Estimated blood loss 700 mL. Findings at the time of surgery revealed normal uterus, tubes, and ovaries bilaterally, a viable female infant in cephalic presentation. Apgars of 8 and 8. The patient's postoperative course was uncomplicated. She tolerated a regular diet, ambulated without difficulty, had her Yanez removed and voided. Her discharge H&H was 7.7 and 23.3, but she was asymptomatic. Her pain was well controlled with oral pain meds. She was discharged home on the with Percocet for pain and to return in 6 weeks for a postoperative evaluation.
== END 2018-09-09 11:05 | disposition home or self-care (01) | DRG 788 ==
LOC: OPB 01:12 → 4S1 01:15 → 4S2 07:18